=== PATIENT | male | born 1955 | race Caucasian/White ===

== ENCOUNTER → 2017-11-29 | Outpatient (CLI) | payer OTHER ==
[~2017-11-29] MED LIST: ATORVASTATIN CA10 M1 PO; FLONASE ALLERG9.9 ML NAS; LISINOPRIL AND1 TA2 PO; LYRICA75 M1 PO; PREDNISONE10 MG PO; ROBITUSSIN AC 110 ML PO; TRAMADOL HCL50 MG PO; VIBRAMYCIN100 MG PO
[2017-11-29 12:12] LABS: BUN 13 mg/dl (7-24); CHLORIDE 105 mmol/L (98-107); CHOLESTEROL 119 mg/dL (<200); CREATININE 1.03 mg/dL (0.70-1.30); HDL CHOLESTEROL 42 mg/dl (40-60); LDL CHOLESTEROL 42 mg/dL (9-159); POTASSIUM 3.8 mmol/L (3.5-5.1); SODIUM 140 mmol/L (136-145); TRIGLYCERIDES 176 mg/dl (<150); VLDL CHOLESTEROL 35 mg/dL (6-40)
== END | disposition home or self-care (01) ==
LOC: LAB 11:03
PROVIDERS: Internal Medicine
DX: E11.9 Type 2 diabetes mellitus without complications (principal); E78.5 Hyperlipidemia, unspecified